=== PATIENT | female | born 1985 | race Two or more races ===

== ENCOUNTER 2017-10-30 10:03 | Emergency (ER) | payer SELFPAY ==
[2017-10-30 10:44] LABS: URINE HCG POC HCG NEGATIVE (Negative)
[2017-10-30] MEDS: IV NORMAL SALINE 1000ML BAG 1,000 ML IV (11:23)
[2017-10-30 11:29] LABS: ADD MAN DIFF? NO
[2017-10-30 11:31] LABS: BILIRUBIN,URINE NEGATIVE (NEG); CLARITY,URINE CLEAR; COLOR,URINE YELLOW; GLUCOSE,URINE NEGATIVE (NEG); NITRITE,URINE NEGATIVE (NEG); PH,URINE 6.5; PROTEIN,URINE NEGATIVE (NEG-TRACE)
[2017-10-30 11:34] LABS: BASO % 1 % (0-3); EOS # 0.1 x10^3/uL (0.0-0.7); EOS % 2 % (0-3); HEMATOCRIT 39.5 % (36.0-47.0); HEMOGLOBIN 14.2 g/dL (12.0-15.5); LYMPH % 31 % (24-48); MEAN CORPUSCULAR HEMOGLOBIN 33 pg (25-35); MEAN CORPUSCULAR HGB CONC 36 g/dL (31-37); MEAN CORPUSCULAR VOLUME 91 fL (79-100); MONO # 0.4 x10^3/uL (0.0-1.1); MONO % 7 % (0-9); NEUT # 3.9 x10^3uL (1.8-7.7); NEUT % 61 % (31-73); PLATELET COUNT 182 x10^3/uL (140-400); RED BLOOD COUNT 4.32 x10^6/uL (3.50-5.40); RED CELL DISTRIBUTION WIDTH 13.3 % (11.5-14.5); WHITE BLOOD COUNT 6.5 x10^3/uL (4.0-11.0)
[2017-10-30] MEDS: ONDANSETRON PF 4 MG/2 ML VIAL. IV (11:40)
[2017-10-30] MEDS: KETOROLAC 30 MG/ML INJ. IV (11:41)
[2017-10-30 11:42] LABS: ANION GAP 5 (6-14); BLOOD UREA NITROGEN 11 mg/dL (7-20); BUN/CREATININE RATIO 22 (6-20); CARBON DIOXIDE 29 mmol/L (21-32); CHLORIDE 106 mmol/L (98-107); CREATININE 0.5 mg/dL (0.6-1.0); GFR 141.2; GLUCOSE 94 mg/dL (70-99); POTASSIUM 3.9 mmol/L (3.5-5.1); SODIUM 140 mmol/L (136-145)
[2017-10-30 11:47] LABS: ALBUMIN 3.7 g/dL (3.4-5.0); ALK PHOS 72 U/L (46-116); ALT (SGPT) 38 U/L (14-59); AST (SGOT) 20 U/L (15-37); LIPASE 154 U/L (73-393); TOTAL BILIRUBIN 0.5 mg/dL (0.2-1.0); TOTAL PROTEIN 7.4 g/dL (6.4-8.2)
[2017-10-30 11:49] LABS: BACTERIA,URINE 0 /HPF (0-FEW); RBC,URINE 0 /HPF (0-2); SQUAMOUS EPITHELIAL CELL,UR MANY /LPF; WBC,URINE 0 /HPF (0-4)
== END 2017-10-30 13:23 | disposition home or self-care (01) ==
LOC: ER 10:03
DX: M94.0 Chondrocostal junction syndrome [Tietze] (principal); R10.11 Right upper quadrant pain; R11.0 Nausea; R30.0 Dysuria
CPT/HCPCS: 36415; 76705; 80053; 81001; 81025; 83690; 85025; 96374; 96375; 99285-25; J1885; J2405; J7030

== ENCOUNTER 2019-04-02 10:54 | Emergency (ER) | payer SELFPAY ==
[~2019-04-02] VITALS: Ht 157.5 cm; Wt 77.1 kg
[~2019-04-02 10:54] MED LIST: IBUP-1060 PO; TRAM50TA PO
[2019-04-02 12:07] LABS: INFLUENZA A PATIENT NEGATIVE (NEGATIVE)
[2019-04-02 12:09] LABS: INFLUENZA B PATIENT POSITIVE (NEGATIVE)
[2019-04-02] MEDS ORDERED: IV NORMAL SALINE 1000ML BAG 1,000 ML IV SCH (12:11)
[2019-04-02] MEDS ORDERED: ONDANSETRON PF 4 MG/2 ML VIAL. IV ONE (12:15)
[2019-04-02] MEDS ORDERED: ACETAMINOPHEN 500 MG TABLET PO ONE (12:15)
--- NOTE | 2019-04-02 12:19 | PHYS DOC ---
Past Medical History Past Medical History: No Pertinent History (ENOC WILLIS APRN) Past Surgical History: No Surgical History (ENOC WILLIS APRN) Alcohol Use: None Drug Use: None (ENOC WILLIS APRN) Adult General Chief Complaint Chief Complaint: COUGH HPI HPI Patient is a 33 year old female who presents with 16 weeks with a OB appointment with her doctor tomorrow. Last 2 days of upper and lower back pain that is sharp and shooting and lower mid abdominal pain. She states she's also had incontinence of urine. She states that when it comes out it feels hot but de nies pain. Patient states the pain she is feeling is constant and rates 9 out of 10. Patient states she has not felt her baby move as much as it used to. (ENOC WILLIS APRN) Review of Systems Review of Systems Constitutional: fever or chills [] Respiratory: cough or denies shortness of breath [] GI: abdominal pain, nausea, vomiting, denies bloody stools or diarrhea [] : dysuria or denies hematuria [] Musculoskeletal: back pain or joint pain [] Neurologic: headache, denies focal weakness or sensory changes [] All other systems were reviewed and found to be within normal limits, except as documented in this note. (ENOC WILLIS APRN) Current Medications Current Medications Current Medications Medications (Trade) Dose Ordered Sig/Lazaro Start Time Stop Time Status Last Admin Dose Admin Acetaminophen (Tylenol) 1,000 mg 1X ONCE 04/02/19 12:15 04/02/19 12:21 DC 04/02/19 12:42 1,000 MG Ondansetron HCl (Zofran) 4 mg 1X ONCE 04/02/19 12:15 04/02/19 12:21 DC 04/02/19 12:42 4 MG Sodium Chloride 500 ml @ 500 mls/hr 1X ONCE 04/02/19 14:00 04/02/19 14:59 DC 04/02/19 14:00 500 MLS/HR (ENRIQUE CROWELL DO) Allergies Allergies Allergies Coded Allergies Type Severity Reaction Last Updated Verified No Known Drug Allergies 10/30/17 No (ENRIQUE CROWELL DO) Physical Exam Physical Exam Constitutional: Well developed, well nourished, no acute distress, non-toxic appearance. [] HENT: Normocephalic, atraumatic, bilateral external ears normal, oropharynx moist, no oral exudates, nose normal. [] Eyes: PERRLA, EOMI, conjunctiva normal, no discharge. [] Neck: Normal range of motion, no tenderness, supple, no stridor. [] Cardiovascular:Heart rate regular rhythm, no murmur [] Lungs & Thorax: Bilateral breath sounds clear to auscultation [] Abdomen: Bowel sounds normal, soft, no tenderness, no masses, no pulsatile masses. [] Skin: Warm, dry, no erythema, no rash. [] Back: No tenderness, no CVA tenderness. [] Extremities: No tenderness, no cyanosis, no clubbing, ROM intact, no edema. [] Neurologic: Alert and oriented X 3, normal motor function, normal sensory function, no focal deficits noted. [] Psychologic: Affect normal, judgement normal, mood normal. Normal Physical Exam[] (ALBA,ENOC Marie APRN) Current Patient Data Vital Signs Vital Signs Date Time Temp Pulse Resp B/P (MAP) Pulse Ox O2 Delivery O2 Flow Rate FiO2 04/02/19 14:15 94 17 95/58 (70) 98 Room Air 04/02/19 11:32 99.9 99.9 (ENRIQUE CROWELL DO) Lab Values Laboratory Tests Test 04/02/19 11:35 04/02/19 12:19 04/02/19 12:21 04/02/19 12:40 Influenza Type A Antigen Negative (NEGATIVE) Influenza Type B Antigen Positive (NEGATIVE) Urine Collection Type Unknown Urine Color Yellow Urine Clarity Cloudy Urine pH 5.5 Urine Specific [place] >=1.030 Urine Protein 30 mg/dL (NEG-TRACE) Urine Glucose (UA) 500 mg/dL (NEG) Urine Ketones (Stick) >=80 mg/dL (NEG) Urine Blood Negative (NEG) Urine Nitrite Negative (NEG) Urine Bilirubin Small (NEG) Urine Urobilinogen Dipstick 1.0 mg/dL (0.2 mg/dL) Urine Leukocyte Esterase Negative (NEG) Urine RBC Occ /HPF (0-2) Urine WBC 1-4 /HPF (0-4) Urine Squamous Epithelial Cells Many /LPF Urine Transitional Epithelial Cells Occ /LPF Urine Renal Epithelial Cells Occ /LPF Urine Amorphous Sediment Present /HPF Urine Bacteria Few /HPF (0-FEW) Urine Mucus Marked /LPF POC Urine HCG, Qualitative Hcg positive (Negative) White Blood Count 8.8 x10^3/uL (4.0-11.0) Red Blood Count 4.09 x10^6/uL (3.50-5.40) Hemoglobin 13.4 g/dL (12.0-15.5) Hematocrit 38.6 % (36.0-47.0) Mean Corpuscular Volume 94 fL (79-100) Mean Corpuscular Hemoglobin 33 pg (25-35) Mean Corpuscular Hemoglobin Concent 35 g/dL (31-37) Red Cell Distribution Width 13.6 % (11.5-14.5) Platelet Count 158 x10^3/uL (140-400) Neutrophils (%) (Auto) 80 % (31-73) H Lymphocytes (%) (Auto) 13 % (24-48) L Monocytes (%) (Auto) 7 % (0-9) Eosinophils (%) (Auto) 0 % (0-3) Basophils (%) (Auto) 1 % (0-3) Neutrophils # (Auto) 7.0 x10^3/uL (1.8-7.7) Lymphocytes # (Auto) 1.1 x10^3/uL (1.0-4.8) Monocytes # (Auto) 0.6 x10^3/uL (0.0-1.1) Eosinophils # (Auto) 0.0 x10^3/uL (0.0-0.7) Basophils # (Auto) 0.0 x10^3/uL (0.0-0.2) Maternal Serum HCG Beta Subunit 55807 mIU/mL (0-5) H Sodium Level 138 mmol/L (136-145) Potassium Level 3.3 mmol/L (3.5-5.1) L Chloride Level 102 mmol/L (98-107) Carbon Dioxide Level 21 mmol/L (21-32) Anion Gap 15 (6-14) H Blood Urea Nitrogen 4 mg/dL (7-20) L Creatinine 0.5 mg/dL (0.6-1.0) L Estimated GFR (Cockcroft-Gault) 140.4 BUN/Creatinine Ratio 8 (6-20) Glucose Level 109 mg/dL (70-99) H Calcium Level 8.9 mg/dL (8.5-10.1) Total Bilirubin 0.9 mg/dL (0.2-1.0) Aspartate Amino Transferase (AST) 15 U/L (15-37) Alanine Aminotransferase (ALT) 9 U/L (14-59) L Alkaline Phosphatase 50 U/L (46-116) Total Protein 8.0 g/dL (6.4-8.2) Albumin 3.5 g/dL (3.4-5.0) Albumin/Globulin Ratio 0.8 (1.0-1.7) L Laboratory Tests 04/02/19 12:40 Laboratory Tests 04/02/19 12:40 (ENRIQUE CROWELL DO) EKG EKG [] (ENOC WILLIS APRN) Radiology/Procedures Radiology/Procedures [] (ENOC WILLIS APRN) Impressions: [facility] [address] [place], [place] [id number] IMAGING REPORT Signed PATIENT: CHANELLE RIVERACCOUNT: [id number] : 1985 LOCATION: ER AGE: 33 SEX: F EXAM STATUS: REG ER ORD. PHYSICIAN: ENOC WILLIS APRN REASON: influenza pos, abd pain, back pain PROCEDURE: PREG MORE THAN OR EQ TO 14 WKS Examination: Obstetric ultrasound greater than 14 weeks HISTORY: History of abdominal pain, back pain COMPARISON: None available FINDINGS: Single living intrauterine identified with heart rate of 152 bpm. Amniotic fluid index measures 12.2 cm. The biparietal diameter measures 3.8 cm corresponding to 17 weeks and 5 days. Head circumference measures 14.0 cm corresponding to 17 weeks and 3 days. Abdominal circumference measures 10.8 cm corresponding to 16 weeks and 5 days. The femur length measures 2.2 cm corresponding to 16 weeks and 6 days. Estimated weight is 172 grams. position is breech. LMP 12/04/2018 Clinical age 17 weeks 0 days with expected date of delivery 09/10/2019. Ultrasound age is 17 weeks and 1 day with estimated date of delivery 09/09/2019. Cephalic index 75.7 Head circumference to abdominal circumference ratio 1.3 Femur length to biparietal diameter 58.9 Femur length to head circumference 16.3. Femur length abdominal circumference 21.1. The placenta is anterior and low lying. IMPRESSION: 1. Single living intrauterine as described above. Full anatomical scan is recommended at 20 weeks. Electronically signed by: Lyle Royal MD (04/02/2019 2:08 PM) [facility] DICTATED and SIGNED BY: LYLE ROYAL MD DATE: 04/02/191407 (ENOC WILLIS APRN) Course & Med Decision Making Course & Med Decision Making Alert and oriented. Lungs are clear in all lobes. Abdomen is soft but nontender. Patient states she's also had nausea and a lower appetite. Patient states she's also been having chills. No CVA tenderness. Patient is influenza B-positive. Sk in pink warm and dry. Ambulatory with a steady gait. Speaks in full clear sentences. Patient denies chest pain, shortness of air, dizziness, syncope, diarrhea, vomiting, numbness or tingling, visual changes. She states at times she will have a headache. The patient has not taken any medications for her symptoms. Patient states she cannot remember the clinic she goes to for her OB but she has an appointment tomorrow. She is educated to keep that appointment make sure that she does go tomorrow. Denies abnormal vaginal discharge or bleeding. Ultrasound is normal. Patient to keep her scheduled appointment with her OB tomorrow. (ENOC WILLIS APRN) Dragon Disclaimer Dragon Disclaimer This electronic medical record was generated, in whole or in part, using a voice recognition dictation system. (ENOC WILLIS APRN) Departure Departure Impression: Primary Impression: Influenza Disposition: HOME, SELF-CARE Condition: STABLE Referrals: NO PCP (PCP) Patient Instructions: Influenza, Adult Additional Instructions: Follow-up with your doctor tomorrow as planned. Drink plenty of fluids. Take Tylenol for pain. Take medication with food. Scripts Ondansetron (ONDANSETRON ODT) 4 Mg Tab.rapdis 1 TAB PO PRN Q6-8HRS, #20 TAB Prov: ENOC WILLIS APRN 04/02/19 Oseltamivir Phosphate (TAMIFLU) 75 Mg Capsule 1 CAP PO BID, #10 CAP Prov: ENOC WILLIS APRN 04/02/19 Attending Signature Attending Signature I have reviewed the PA/FINANCIAL PROFESSIONAL's note and plan of care. I was available for consultation as needed during the patient's visit in the emergency department. I agree with the clinical impression, plan, and disposition. (ENRIQUE CROWELL DO) ENOC WILLIS APRN Apr 02, 2019 12:19 ENRIQUE CROWELL DO Apr 03, 2019 07:54
[2019-04-02 12:28] LABS: BILIRUBIN,URINE SMALL (NEG); CLARITY,URINE CLOUDY; NITRITE,URINE NEGATIVE (NEG); PH,URINE 5.5; PROTEIN,URINE 30 mg/dL (NEG-TRACE)
[2019-04-02 12:31] LABS: COLOR,URINE YELLOW
[2019-04-02 12:36] LABS: AMORPHOUS SEDIMENT,UR PRESENT /HPF; BACTERIA,URINE FEW /HPF (0-FEW); SQUAMOUS EPITHELIAL CELL,UR MANY /LPF
[2019-04-02 12:38] LABS: RBC,URINE OCC /HPF (0-2)
[2019-04-02 12:52] LABS: BASO % 1 % (0-3); EOS % 0 % (0-3); HEMATOCRIT 38.6 % (36.0-47.0); HEMOGLOBIN 13.4 g/dL (12.0-15.5); LYMPH # 1.1 x10^3/uL (1.0-4.8); LYMPH % 13 % (24-48); MEAN CORPUSCULAR HEMOGLOBIN 33 pg (25-35); MEAN CORPUSCULAR HGB CONC 35 g/dL (31-37); MEAN CORPUSCULAR VOLUME 94 fL (79-100); MONO # 0.6 x10^3/uL (0.0-1.1); MONO % 7 % (0-9); NEUT % 80 % (31-73); PLATELET COUNT 158 x10^3/uL (140-400); RED BLOOD COUNT 4.09 x10^6/uL (3.50-5.40); RED CELL DISTRIBUTION WIDTH 13.6 % (11.5-14.5); WHITE BLOOD COUNT 8.8 x10^3/uL (4.0-11.0)
[2019-04-02 13:00] LABS: CALCIUM 8.9 mg/dL (8.5-10.1); CREATININE 0.5 mg/dL (0.6-1.0); GFR 140.4; POTASSIUM 3.3 mmol/L (3.5-5.1)
[2019-04-02 13:06] LABS: ALBUMIN 3.5 g/dL (3.4-5.0); ALBUMIN/GLOBULIN RATIO 0.8 (1.0-1.7); TOTAL BILIRUBIN 0.9 mg/dL (0.2-1.0)
[2019-04-02] MEDS ORDERED: IV NORMAL SALINE 500ML BAG 500 ML IV ONE (14:00)
--- NOTE | 2019-04-02 14:11 | RAD ---
Examination: Obstetric ultrasound greater than 14 weeks HISTORY: History of abdominal pain, back pain COMPARISON: None available FINDINGS: Single living intrauterine identified with heart rate of 152 bpm. Amniotic fluid index measures 12.2 cm. The biparietal diameter measures 3.8 cm corresponding to 17 weeks and 5 days. Head circumference measures 14.0 cm corresponding to 17 weeks and 3 days. Abdominal circumference measures 10.8 cm corresponding to 16 weeks and 5 days. The femur length measures 2.2 cm corresponding to 16 weeks and 6 days. Estimated weight is 172 grams. position is breech. LMP 12/04/2018 Clinical age 17 weeks 0 days with expected date of delivery 09/10/2019. Ultrasound age is 17 weeks and 1 day with estimated date of delivery 09/09/2019. Cephalic index 75.7 Head circumference to abdominal circumference ratio 1.3 Femur length to biparietal diameter 58.9 Femur length to head circumference 16.3. Femur length abdominal circumference 21.1. The placenta is anterior and low lying. IMPRESSION: 1. Single living intrauterine as described above. Full anatomical scan is recommended at 20 weeks. Electronically signed by: Lyle Royal MD (04/02/2019 2:08 PM) [facility] [place]
[2019-04-02 14:15] VITALS: BP 95/58
[2019-04-02] MEDS ORDERED: ONDA4TAB12 PO (14:46)
[2019-04-02] MEDS ORDERED: OSEL75CA PO (14:46)
== END 2019-04-02 15:30 | disposition home or self-care (01) ==
LOC: ER 10:54
DX: O26.892 Other specified pregnancy related conditions, second trimester (principal); J10.1 Influenza due to other identified influenza virus with other respiratory manifestations; M54.5 Low back pain; M54.6 Pain in thoracic spine; Z3A.17 17 weeks gestation of pregnancy; R32 Unspecified urinary incontinence; Z79.899 Other long term (current) drug therapy
CPT/HCPCS: 36415; 76805; 80053; 81001; 81025; 84702; 85025; 87804; 96374; 99285; J2405; J7030; J7040

== ENCOUNTER 2019-07-21 06:56 | Emergency (ER) | payer SELFPAY ==
[~2019-07-21] VITALS: Ht 157.5 cm; Wt 87.0 kg
[~2019-07-21 06:56] MED LIST changes: +ONDA4TAB12 PO; +OSEL75CA PO
[2019-07-21] MEDS ORDERED: LIDO:MAALOX 1:1 20 ML SINGLE DOSE. SWSW ONE (07:15)
[2019-07-21] MEDS ORDERED: ONDANSETRON ODT 4 MG TAB.RAPDIS. PO ONE (07:30)
[2019-07-21] MEDS ORDERED: FAMOTIDINE 20 MG TABLET. PO ONE (07:30)
--- NOTE | 2019-07-21 07:49 | PHYS DOC ---
Past Medical History Past Medical History: No Pertinent History Past Surgical History: No Surgical History Smoking Status: Never Smoker Alcohol Use: None Drug Use: None General Adult EDM: Chief Complaint: GI PROBLEM HPI: HPI: Patient is a 33 year old female who was 32 weeks , presented to ER today for evaluation of epigastric pain, burning in nature, radiate up to and into her esophagus area. Patient denies any chest pain, no trouble breathing. Patient denies any cough or fever. Patient denies any history of blood clot disorder. Patient denies any family history of blood clot disorder. Patient denies any pelvic pain, no vaginal bleeding or discharge, denies any leg swelli ng. The symptoms started last night around 8 PM. Review of Systems: Review of Systems: Constitutional: Denies fever or chills. [] Eyes: Denies change in visual acuity. [] HENT: Denies nasal congestion or sore throat. [] Respiratory: Denies cough or shortness of breath. [] Cardiovascular: Denies chest pain or clarissa ABDOMEN: Positive for abdominal pain and nausea, no vomiting, bloody stools or diarrhea. [] : Denies dysuria. [] Musculoskeletal: Denies back pain or joint pain. [] Integument: Denies rash. [] Neurologic: Denies headache, focal weakness or sensory changes. [] Endocrine: Denies polyuria or polydipsia. [] Lymphatic: Denies swollen glands. [] Psychiatric: Denies depression or anxiety. [] Heart Score: Risk Factors: Risk Factors: DM, Current or recent (<one month) smoker, HTN, HLP, family history of CAD, obesity. Risk Scores: Score 0 - 3: 2.5% MACE over next 6 weeks - Discharge Home Score 4 - 6: 20.3% MACE over next 6 weeks - Admit for Clinical Observation Score 7 - 10: 72.7% MACE over next 6 weeks - Early Invasive Strategies Current Medications: Current Medications Medications (Trade) Dose Ordered Sig/Lazaro Start Time Stop Time Status Last Admin Dose Admin Famotidine (Pepcid) 20 mg 1X ONCE 07/21/19 07:30 07/21/19 07:31 DC 07/21/19 07:39 20 MG Multi-Ingredient Mouthwash/Gargle (Gi Cocktail) 20 ml 1X ONCE 07/21/19 07:15 07/21/19 07:16 DC 07/21/19 07:19 20 ML Ondansetron HCl (Zofran Odt) 4 mg 1X ONCE 07/21/19 07:30 07/21/19 07:31 DC 07/21/19 07:40 4 MG Allergies: Allergies: Allergies Coded Allergies Type Severity Reaction Last Updated Verified No Known Drug Allergies 10/30/17 No Physical Exam: PE: Constitutional: Well developed, well nourished, no acute distress, non-toxic appearance. [] HENT: Normocephalic, atraumatic, bilateral external ears normal, oropharynx moist, no oral exudates, nose normal. [] Eyes: PERRLA, EOMI, conjunctiva normal, no discharge. [] Neck: Normal range of motion, no tenderness, supple, no stridor. [] Cardiovascular:Heart rate regular rhythm, no murmur [] Lungs & Thorax: Bilateral breath sounds clear to auscultation [] Abdomen: Bowel sounds normal, soft, no tenderness, no masses, no pulsatile masses. NO RUQ ABDOMINAL TENDERNESS TO PALPATION. Skin: Warm, dry, no erythema, no rash. [] Back: No tenderness, no CVA tenderness. [] Extremities: No tenderness, no cyanosis, no clubbing, ROM intact, no edema. NO CALF SWELLING OR TENDERNESS TO PALPATION. Neurologic: Alert and oriented X 3, normal motor function, normal sensory function, no focal deficits noted. [] Psychologic: Affect normal, judgement normal, mood normal. [] Current Patient Data: Vital Signs: Vital Signs Date Time Temp Pulse Resp B/P (MAP) Pulse Ox O2 Delivery O2 Flow Rate FiO2 07/21/19 07:00 98.6 87 18 129/56 (80) 99 Room Air 98.6 EKG: EKG: EKG was done at 717, heart rate of 87 beats per minute, normal sinus rhythm. Radiology/Procedures: Radiology/Procedures: [] Course & Med Decision Making: Course & Med Decision Making Pertinent Labs and Imaging studies reviewed. (See chart for details) Patient was given GI cocktail and Pepcid as in the ER, she felt much better. Patient will be discharged home with Pepcid to take at home. Patient was instructed to follow-up with her family doctor for reevaluation. She was instructed to return to ER if having trouble breathing with chest pain or leg swelling. Patient is amenable to plan of care. Dragon Disclaimer: Dragon Disclaimer: This electronic medical record was generated, in whole or in part, using a voice recognition dictation system. Departure Departure Impression: Primary Impression: GERD (gastroesophageal reflux disease) Disposition: 01 HOME, SELF-CARE Condition: IMPROVED Referrals: NO PCP (PCP) follow up with your doctor as needed. Return if you have chest pain or shortness of air. Patient Instructions: Diet for Gastroesophageal Reflux Disease, Child, [id number] Additional Instructions: Thank you for visiting our Emergency Department. We appreciate you trusting us with your care. If any additional problems come up don't hesitate to return to visit us. Please follow up with your primary care provider so they can plan additional care if needed and know about the problem that you had. If symptoms worsen come back to the Emergency Department. Any concerning symptoms that start such as chest pain, shortness of air, weakness or numbness on one side of the body, running high fevers or any other concerning symptoms return to the ER. Scripts Famotidine (PEPCID) 40 Mg Tablet 40 MG PO HS for 30 Days, #30 TAB Prov: SADA MARLEY DO 07/21/19 SADA MARLEY DO Jul 21, 2019 07:49
[2019-07-21 08:06] VITALS: BP 103/50
[2019-07-21] MEDS ORDERED: FAMO40TA57 PO (08:10)
--- NOTE | 2019-07-21 14:52 | EKG ---
[facility] [address] [place] [id number] Test Date: 2019-07-21 Test Time: 07:16:54 Pat Name: CONRAD JORDAN Department: Room: Gender: F Paper Latcher: : 1985 Requested By: SADA MARLEY Order Number: [id number] Reading MD: Measurements Intervals Hughes Rate: 87 P: 21 GA: 154 QRS: 29 QRSD: 90 T: 10 QT: 362 QTc: 436 Interpretive Statements SINUS RHYTHM NORMAL ECG No previous ECG available for comparison
== END 2019-07-21 08:21 | disposition home or self-care (01) ==
LOC: ER 06:56
DX: O26.893 Other specified pregnancy related conditions, third trimester (principal); K21.9 Gastro-esophageal reflux disease without esophagitis; Z3A.32 32 weeks gestation of pregnancy
CPT/HCPCS: 93005; 99284; Q0162